=== PATIENT | female | born 1970 | race Caucasian/White ===

== ENCOUNTER 2019-09-10 08:15 | Outpatient (CLI) | payer BC, SELFPAY ==
--- NOTE | 2019-09-10 08:45 | USCV_ITS ---
Valerie Medina Age: 49 Gender: F : 1970 Exam Date: 09/10/2019 08:34 Ordering Phys: Deedee Yoon APRN Technologist: Seema Osman Exam Location: [facility] [place] Indication: MV DISEASE BP: 115 / 67 HR: 77 Rhythm: Sinus Technical Quality: MEASUREMENTS (Male / Female) Normal Values 2D ECHO LV Diastolic Diameter PLAX 4.6 cm 4.2 - 5.9 / 3.9 - 5.3 cm LV Systolic Diameter PLAX 3.6 cm LV Chamber Size 3.9 cm IVS Diastolic Thickness 0.9 cm 0.6 - 1.0 / 0.6 - 0.9 cm IVS Systolic Thickness 1.1 cm LVPW Diastolic Thickness 1.8 cm 0.6 - 1.0 / 0.6 - 0.9 cm LVPW Systolic Thickness 2.4 cm RV Chamber Size 2.2 cm LVOT Diameter 2.0 cm LV Ejection Fraction 2D Teich 43.3 % LV Ejection Fraction MOD 2C 49.4 % LV Ejection Fraction 2C AL 50.3 % LA Diameter 3.2 cm LA Width 3.6 cm LA Height 3.5 cm RA Width 3.4 cm RA Height 3.1 cm Aorta at Sinotubular Diameter 3.0 cm M-MODE LV Diastolic Diameter MM 5.3 cm 4.2 - 5.9 / 3.9 - 5.3 cm LV Systolic Diameter MM 3.6 cm LV Ejection Fraction MM Teich 59.2 % IVS Diastolic Thickness MM 0.8 cm 0.6 - 1.0 / 0.6 - 0.9 cm IVS Systolic Thickness MM 1.0 cm LVPW Diastolic Thickness MM 0.9 cm 0.6 - 1.0 / 0.6 - 0.9 cm LVPW Systolic Thickness MM 1.2 cm Aortic Annulus Diameter 3.4 cm LA Ao Ratio MM 0.9 MV E Point Septal Separation 1.0 cm DOPPLER AV Peak Velocity 147.0 cm/s LVOT Peak Velocity 107.0 cm/s AV Area Cont Eq vti 2.3 cm squared AV Area Cont Eq pk 2.3 cm squared MV Area PHT 6.7 cm squared Mitral E to A Ratio 1.0 MV E' Velocity 12.0 cm/s Mitral E to MV E' Ratio 7.2 Mitral E to LV E' Lateral Ratio 6.5 Mitral E to LV E' Septal Ratio 8.1 TR Peak Velocity 262.0 cm/s TR Peak Gradient 27.5 mmHg TV Peak E Velocity 53.0 cm/s Right Atrial Pressure 3.0 mmHg Pulmonary Artery Systolic Pressu 30.5 mmHg PV Peak Velocity 77.0 cm/s RV Acceleration Time 0.2 s RV Ejection Time 0.4 s RV AcT/ET 0.5 FINDINGS Left Ventricle Normal left ventricular cavity size. Normal left ventricular wall thickness. Normal left ventricular systolic function. Left ventricular ejection fraction is estimated at 60 %. No regional wall motion abnormalities. Normal diastolic function. Right Ventricle Normal right ventricular size and systolic function. Right ventricular systolic pressure 30.5 mmHg. Right Atrium Normal right atrial size. Right atrial pressure estimated at 3 mmHg. Left Atrium Normal left atrial size. Mitral Valve Mildly thickened mitral valve. Mild bileaflet prolapse. No mitral valve stenosis. Trace posteriorly directed mitral valve regurgitation. Aortic Valve Structurally normal trileaflet aortic valve. No aortic valve stenosis. No aortic valve regurgitation. Tricuspid Valve Structurally normal tricuspid valve. No tricuspid valve stenosis. Trace tricuspid valve regurgitation. Pulmonic Valve Structurally normal pulmonic valve. No pulmonary valve stenosis. Trace pulmonary valve regurgitation. Pericardium No pericardial effusion. Aorta Normal size aortic root and proximal ascending aorta. CONCLUSIONS 1. Normal left ventricular cavity size, wall thickness and systolic function. Left ventricular ejection fraction is estimated at 60 %. No regional wall motion abnormalities. Normal diastolic function. 2. Normal right ventricular size and systolic function. 3. Mildly thickened mitral valve. Mild bileaflet prolapse. Trace posteriorly directed mitral valve regurgitation. 4. Pulmonary artery pressure estimated at 31 mmHg. 5. No prior similar studies to compare. Patricia Burdick MD (Electronically Signed) Final Date: 10 September 2019 13:19 S
== END 2019-09-10 08:16 | disposition home or self-care (01) ==
PROVIDERS: Family Provider Internal Medicine; PCP Internal Medicine; Visit Provider Nurse Practitioner Family
DX: I05.9 Rheumatic mitral valve disease, unspecified (principal)
CPT/HCPCS: 93306

== ENCOUNTER 2019-09-11 09:20 | Outpatient (CLI) | payer BC, SELFPAY ==
[2019-09-11 09:42] LABS: Basophils # 0.1 10^3/uL (0.0-0.1); Basophils % 0.8 %; Eosinophils # 0.1 10^3/uL (0.0-0.8); Eosinophils % 1.8 %; Hematocrit 40.8 % (37.0-47.0); Hemoglobin 13.3 g/dL (11.5-15.3); Lymphocytes # 1.8 10^3/uL (0.8-4.8); Lymphocytes % 28.9 %; Mean Corpuscular HGB Conc 32.6 g/dL (30.0-36.0); Mean Corpuscular Hemoglobin 31.6 pg (28.0-34.0); Mean Corpuscular Volume 96.9 fL (81-99); Mean Platelet Volume 9.2 fL (7.4-10.4); Monocytes # 0.7 10^3/uL (0.2-0.9); Monocytes % 11.2 %; Neutrophils # 3.6 10^3/uL (1.8-7.7); Neutrophils % 57.1 %; Nucleated Red Blood Cells % 0 %; Platelet Count 317 10^3/cmm (130-400); Red Blood Count 4.21 10^6/uL (4.1-5.3); Red Cell Distribution Width 12.6 % (12.1-15.1); White Blood Count 6.3 10^3/uL (4.0-10.0)
[2019-09-11 10:02] LABS: Alanine Aminotransferase 14 U/L (0-33); Albumin Level 4.7 g/dL (3.5-5.2); Alkaline Phosphatase 67 IU/L (35-105); Anion Gap 15.9 (5-19); Aspartate Amino Transferase 19 U/L (0-32); Blood Urea Nitrogen 9 mg/dL (6-20); Calcium 10.1 mg/dL (8.5-10.5); Carbon Dioxide 28 mmol/L (22-29); Chloride 103 mmol/L (98-107); Glomerular Filtration Rate 89.3 mL/min (90-130); Glucose 73 mg/dL (65-115); Osmolality Calculated 291 mOsm/kg (285-295); Potassium 3.9 mmol/L (3.5-5.1); Sodium 143 mmol/L (136-145); Thyroid Stimulating Hormone 1.43 uIU/mL (0.27-4.20); Total Bilirubin 0.4 mg/dL (0.15-1.2); Total Protein 7.7 g/dL (6.6-8.7)
== END 2019-09-11 09:21 | disposition home or self-care (01) ==
LOC: LAB 09:23
PROVIDERS: Nurse Practitioner Family; Family Provider Internal Medicine; PCP Internal Medicine; Visit Provider Internal Medicine
DX: R53.83 Other fatigue (principal)
CPT/HCPCS: 36415; 80053; 84443; 85025

== ENCOUNTER → 2020-12-06 16:00 | Outpatient (BNVA) | payer BC, SELFPAY | PROVIDERS: Family Provider Internal Medicine; PCP Internal Medicine; Visit Provider Internal Medicine | DX: R53.83 Other fatigue (principal); Z85.43 Personal history of malignant neoplasm of ovary | CPT/HCPCS: 80053; 82607; 82746; 83550; 84443; 85651 ==

== ENCOUNTER 2020-12-17 09:24 | Outpatient (CLI) | payer BC, SELFPAY ==
--- NOTE | 2020-12-17 09:40 | XR_ITS ---
WS: [id number] Right wrist, 2 views Clinical Data: W19.XXXA - Unspecified fall, initial encounter Comparison: Right hand, 10/20/2010. Findings: On the lateral film there is a small fragment which could represent a triquetral fracture. The PA view is normal. The soft tissues are unremarkable. The distal right radius and ulna are normal . XR/XR wrist RT 2V [id number] Impression: Possible triquetral fracture of the right wrist and recommend repeat right wris t x-ray in 8-10 days.
== END 2020-12-17 09:25 | disposition home or self-care (01) ==
PROVIDERS: PCP Internal Medicine; Visit Provider Internal Medicine
DX: S69.91XA Unspecified injury of right wrist, hand and finger(s), initial encounter (principal); W19.XXXA Unspecified fall, initial encounter; R79.89 Other specified abnormal findings of blood chemistry
CPT/HCPCS: 73100

== ENCOUNTER → 2021-05-09 15:20 | Outpatient (BNVA) | payer BC, SELFPAY | PROVIDERS: PCP Internal Medicine; Visit Provider Internal Medicine | DX: R63.4 Abnormal weight loss (principal); R10.9 Unspecified abdominal pain; E78.5 Hyperlipidemia, unspecified; Z80.0 Family history of malignant neoplasm of digestive organs; Z85.43 Personal history of malignant neoplasm of ovary | CPT/HCPCS: 80053; 83550; 84443 ==

== ENCOUNTER → 2021-05-30 12:53 | Outpatient (BNVA) | payer BC, SELFPAY | PROVIDERS: PCP Internal Medicine; Visit Provider Internal Medicine | DX: Z01.812 Encounter for preprocedural laboratory examination (principal); Z20.822 Contact with and (suspected) exposure to COVID-19 | CPT/HCPCS: 87635 ==

== ENCOUNTER 2021-06-06 05:32 | Day surgery (SDC) | payer BC, SELFPAY ==
[2021-06-01 12:48] VITALS: BMI 27.4
[2021-06-06 06:20] VITALS: BP 121/77; PULSE 90; RESP 18; TEMP 36.8; O2SAT 97
[2021-06-06] MEDS: sodium chloride 0.9% 1,000 ML 30 ML IV (06:34)
--- NOTE | 2021-06-06 06:46 | ANES.PREANE2 ---
Pre-Anesthetic Assessment Pre-Anesthetic Assessment: Height/Weight: Height 1.68 m Weight 77.111 kg Temp Pulse Resp BP Pulse Ox 98.3 F 90 18 121/77 97 06/06/21 06:20 06/06/21 06:20 06/06/21 06:20 06/06/21 06:20 06/06/21 06:20 Preop Diagnosis: FH Proposed Procedure: Operation Date: 06/06/21 07:00 Proposed Procedures p EGD/Colon 88279 R10.9(Not Applicable) - Chapo Hankins MD s Colonoscopy D8798 67550 Z80.0(Not Applicable) - Chapo Hankins MD Familial anesthetic complications: none Was Beta Patricia taken within 24 hours: N/A Was Clonidine taken within 24 hours: N/A Last intake: Intake Last Liquid Date 06/05/21 Last Liquid Time 20:00 Last Solid Date 06/04/21 Last Solid Time 19:00 Social: Social History: Alcohol and No tobacco Exam: Pre-Anes Outpt Exam: alert, oriented x 3 and clear to auscultation bilaterally Additional Exam Findings (including area of procedure): mitral valve murmur Airway: Submandibular: WNL Cervical ROM: WNL MP: 1 Dentition: Full History/ROS: No significant history except as noted Pulmonary: Pulmonary: None reported CV/HEM: CV/HEM: Murmur and Palp : : None reported Hepatic: Hepatic: None reported GI: GI: None reported Metabolic: Metabolic: None reported Musc/skel: Musc/skel: None reported Neuropsych: Neuropsych: None reported Anesthetic Plan: ASA status: 2 Anesthesia: MAC Risk of > 500 ml blood loss (7ml/kg in children): No Meds/Allergies Current Medications: Current Medications Generic Name Dose Route Start Last Admin Trade Name Freq PRN Reason Stop Dose Admin Sodium Chloride 1,000 mls @ 30 ml s/hr 06/06/21 06:15 06/06/21 06:34 Sodium Chloride 0.9% IV 06/07/21 06:14 30 mls/hr .Q24H JETT Administration PFSH Anesthesia PFSH: Family History Mother Heart disease Grandmother Heart disease Grandfather Heart disease Father Cancer Social History Smoking and tobacco status: never smoked Alcohol intake: current Alcohol intake frequency: 0-2 Drinks per Day Data Anesthesia Cardiac Studies: Echocardiogram Ultrasound 09/10/19
--- NOTE | 2021-06-06 07:02 | W.PM.OPSFHP ---
Same Day Surgery H&P Indication for Procedure/HPI DATE OF PROCEDURE: June 06, 2021 CHIEF COMPLAINT/INDICATIONFOR SURGICAL PROCEDURE: Abdominal pain PREOP DIAGNOSIS: FH PLANNED PROCEDRUE: Operation Date: 06/06/21 07:00 Proposed Procedures p EGD/Colon 80198 R10.9(Not Applicable) - Chapo Hankins MD s Colonoscopy X2149 88626 Z80.0(Not Applicable) - Chapo Hankins MD Medications/Allergies* Allergies/Adverse Reactions Allergy/AdvReac Type Severity Reaction Status Date / Time No Known Allergies Allergy Verified 05/09/21 14:44 Current Medications: Generic Name Dose Route Start Last Admin Trade Name Freq PRN Reason Stop Dose Admin Sodium Chloride 1,000 mls @ 30 mls/hr 06/06/21 06:15 06/06/21 06:34 Sodium Chloride 0.9% IV 06/07/21 06:14 30 mls/hr .Q24H JETT Administration Pertinent History/Comorbid Conditions* Family History (Updated 09/03/19 @ 14:33 by Harper Arce LPN) Heart disease Mother Grandmother Grandfather Cancer Father Social History Smoking and tobacco status: never smoked Alcohol intake: current Alcohol intake frequency: 0-2 Drinks per Day Pertinent Exam Findings alert, oriented x 3, clear to auscultation bilaterally, regular rate & rhythm, operative site marked and procedure specific exam findings Recommendations Surgery/Procedure today Coding Level of Care Code Acute Projects Manager for Nico Tolbert
[2021-06-06 07:31] VITALS: BP 95/73; PULSE 85; RESP 16; TEMP 36.1; O2SAT 96
--- NOTE | 2021-06-06 14:06 | ANE.PACU2 ---
Inpatient post-anesthesia follow up: Airway intact: Yes Vital signs: Temperature 97.0 F Pulse Rate 85 Respiratory Rate 16 Blood Pressure 95/73 Pulse Oximetry 96 Oxygen Delivery Me thod Nasal Cannula Oxygen Flow Rate 4 Fraction of Inspir ed Oxygen Hydration adequate: Yes Nausea and vomiting: No Pain level: 2 Mental status: Baseline
[2021-06-07 06:11] LABS: H. Pylori / CLO Test Negative
== END 2021-06-06 08:16 | disposition home or self-care (01) ==
PROVIDERS: PCP Internal Medicine; Visit Provider Internal Medicine
PROC: 0DJ08ZZ Inspection of Upper Intestinal Tract, Via Natural or Artificial Opening Endoscopic (ICD-10-PCS; CPT 43235; principal; 2021-06-06 07:00)
PROC: 0DJD8ZZ Inspection of Lower Intestinal Tract, Via Natural or Artificial Opening Endoscopic (ICD-10-PCS; CPT 45378; 2021-06-06 07:00)
DX: R10.9 Unspecified abdominal pain (principal); Z80.0 Family history of malignant neoplasm of digestive organs; K29.70 Gastritis, unspecified, without bleeding; Z82.49 Family history of ischemic heart disease and other diseases of the circulatory system
CPT/HCPCS: 43239; 45378; 87077; J2704; J7030

== ENCOUNTER 2021-10-10 14:31 | Outpatient (CLI) | payer OTHER, SELFPAY ==
--- NOTE | 2021-10-10 14:49 | XRR_ITS ---
PROCEDURE INFORMATION: Exam: XR Chest Exam date and time: 10/10/2021 2:57 PM Age: 51 years old Clinical indication: Angina pectoris; Prior surgery; Surgery type: Hysterectomy; Patient HX: Chest pain yesterday, HX of ovarian cancer; Additional info: Cp TECHNIQUE: Imaging protocol: XR of the chest. Views: 2 views. COMPARISON: CT Chest/Abdomen/Pelvis [facility] 03/30/2015 9:47 AM FINDINGS: Lungs: No consolidation. Pleural spaces: Unremarkable. No pleural effusion. No pneumothorax. Heart/Mediastinum: No cardiomegaly. Bones/joints: No acute findings. XR/XR chest 2V* [id number] IMPRESSION: No acute findings.
== END 2021-10-10 14:32 | disposition home or self-care (01) ==
PROVIDERS: PCP Internal Medicine; Visit Provider Internal Medicine
DX: R07.89 Other chest pain (principal)
CPT/HCPCS: 71046

== ENCOUNTER → 2023-01-20 10:50 | Outpatient (BNVA) | payer OTHER, SELFPAY | PROVIDERS: PCP Family Medicine; Visit Provider Nurse Practitioner Family | DX: R05.9 Cough, unspecified (principal) | CPT/HCPCS: 87426 ==

== ENCOUNTER 2024-08-07 23:20 | Emergency (ER) | payer OTHER, SELFPAY ==
[2024-08-07 23:24] VITALS: BP 148/77; PULSE 72; RESP 16; TEMP 36.4; O2SAT 97; BMI 29.0
[2024-08-08 00:32] LABS: Bilirubin Urine Negative (Negative); Blood Urine Negative (Negative); Glucose Urine UA Negative (Normal); Ketones Urine Negative (Negative); Leukocyte Esterase Urine 3+ (Negative); Nitrate Urine Negative (Negative); Protein Urine Negative (Negative); Specific Gravity, Urine 1.015 (1.005-1.030); Urine Appearance Cloudy (CLEAR); Urine Color Yellow (Yellow)
[2024-08-08 00:34] LABS: Add Urine Microscopic? YES; Bacteria Urine None Seen /hpf; Hyaline Casts Urine 0.81 /lpf; RBC Urine 0-2 /hpf (0-2); Squamous Epithelial Cell Urine 0-5 /hpf (0-5); WBC Urine 51-100 /hpf (0-5)
[2024-08-08 00:35] LABS: Basophils # 0.1 10^3/uL (0.0-0.1); Basophils % 0.6 %; Eosinophils # 0.2 10^3/uL (0.0-0.8); Eosinophils % 2.5 %; Hematocrit 38.2 % (36-47); Lymphocytes # 1.4 10^3/uL (0.8-4.8); Lymphocytes % 17.2 %; Mean Corpuscular Hemoglobin 31.9 pg (27-33); Mean Corpuscular Volume 93.6 fl (85-98); Mean Platelet Volume 8.5 fL (7.4-10.4); Monocytes # 0.7 10^3/uL (0.2-0.9); Monocytes % 8.6 %; Neutrophils # 5.92 10^3/uL (1.8-7.7); Neutrophils % 70.7 %; Nucleated Red Blood Cells % 0 %; Platelet Count 289 10^3/cmm (157-399); Red Blood Count 4.08 10^6/uL (3.85-5.65); Red Cell Distribution Width 12.5 % (12.1-15.1); White Blood Count 8.37 10^3/uL (3.29-11.43)
--- NOTE | 2024-08-08 00:43 | XRR_ITS ---
PROCEDURE INFORMATION: Exam: XR Chest Exam date and time: 08/08/2024 1:01 AM Age: 54 years old Clinical indication: Other: Epigastric pain TECHNIQUE: Imaging protocol: Radiologic exam of the chest. Views: 1 view. COMPARISON: CR XR chest 2V* [id number] 10/10/2021 2:57 PM FINDINGS: Lungs: Unremarkable. No consolidation. Pleural spaces: Unremarkable. No pleural effusion. No pneumothorax. Heart/Mediastinum: Unremarkable. No cardiomegaly. Bones/joints: Unremarkable. XR/XR chest 1V portable [id number] IMPRESSION: No acute findings.
--- NOTE | 2024-08-08 00:44 | ECG_ITS ---
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 Measurements Intervals [place] Rate: 61 P: -24 CO: 158 QRS: 12 QRSD: 98 T: -36 QT: 425 QTc: 429 Interpretive Statements SINUS RHYTHM NONSPECIFIC T-WAVE ABNORMALITY No previous ECG available for comparison Electronically Signed On 08-08-2024 19:04:48 CDT by Rahul Gómez M.D. [email or web address]
[2024-08-08 00:54] LABS: Anion Gap 15.3 (5-19); Blood Urea Nitrogen 13 mg/dL (6-20); Calcium 9.4 mg/dL (8.5-10.5); Carbon Dioxide 26 mmol/L (22-29); Chloride 104 mmol/L (98-107); Creatinine Clr Calc Pharmacy 100.1242; Glomerular Filtration Rate 87.5 mL/min (90-130); Glucose 106 mg/dL (65-115); Lipase 24 U/L (13-60); Osmolality Calculated 295 mOsm/kg (285-295); Potassium 3.3 mmol/L (3.5-5.1); Sodium 142 mmol/L (136-145)
[2024-08-08 00:59] LABS: Alanine Aminotransferase 26 U/L (0-33); Albumin Level 4.2 g/dL (3.5-5.2); Alkaline Phosphatase 88 U/L (35-105); Aspartate Amino Transferase 26 U/L (0-32); Globulin 2.7 g/dL (1.3-4.6); Total Bilirubin 0.5 mg/dL (0.15-1.2); Total Protein 6.9 g/dL (6.6-8.7)
[2024-08-08 01:09] LABS: Add Urine Culture? Yes
[2024-08-08 01:13] LABS: Troponin(5th) Baseline < 6 ng/L (0-10)
--- NOTE | 2024-08-08 01:24 | W.ED.ABDPA2 ---
HPI - Abdominal Pain General: Chief Complaint: Abdominal Pain Stated Complaint: severe abd pain pain in left jaw Time Seen by Provider: 08/08/24 00:33 History of Present Illness: This patient is a 54-year-old white female who presents to the emergency department complaining of upper abdominal pain. She states this was severe. This morning. She is described as a stabbing sensation. She is felt somewhat bloated today. She felt like her heart was fluttering somewhat this evening. 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 Alegre at [facility] in [place] Surgical History History of cholecystectomy History of appendectomy History of tonsillectomy History of hysterectomy Family History Mother Heart disease Grandmother Heart disease Grandfather Heart disease Father Cancer colon Social History Smoking and tobacco/nicotine status: never used tobacco/nicotine Alcohol intake: current Alcohol intake frequency: 0-2 Drinks per Day Substance/Drug Use: never Household members: none Marital status: Number of children: 2 Number of grandchildren: 2 Current occupational status: employed Agree to transfusion: Yes Physical Exam Const: COMMON NORMALS: no acute distress, patient oriented x3 and no limitations GENERAL APPEARANCE: cooperative and comfortable HENMT: COMMON NORMALS: normocephalic, atraumatic, Normal nasal mucous membranes and turbinates present, moist oral mucous membranes and oropharynx normal HEAD & SCALP: normal to inspection, normocephalic and atraumatic FACE & SINUS: normal facial exam NOSE: Normal nasal mucous membranes and turbinates present Eye: COMMON NORMALS: Equal, round and reactive pupils present, EOMs intact bilaterally and conjunctivae normal GENERAL EYE: appearance normal, both eyes and all related structures CONJUNCTIVA: Yes conjunctivae normal PUPIL: Yes Equal, round and reactive pupils present Neck/C-Spine: COMMON NORMALS: supple and no JVD Chest: COMMONS NORMALS: normal inspection of the chest Resp: COMMON NORMALS: normal respiratory effort and clear to auscultation bilaterally AUSCULTATION: clear to auscultation bilaterally Cardio: COMMON NORMALS: no JVD, regular rate, regular rhythm, No gallops present (Cardio), No murmurs present (Cardio) and No rub (Cardio) RATE: regular rate RHYTHM: regular rhythm GI: COMMON NORMALS: Normal to inspection, nondistended, normoactive bowel sounds present, Soft to palpation and non-tender AUSCULTATION: Yes normoactive bowel sounds PALPATION: Yes Soft to palpation : COMMON NORMALS: Yes no CVA tenderness BLADDER/KIDNEY EXAM: Yes no CVA tenderness Back/Pelvis: COMMON NORMALS: no CVA tenderness and thoracic and lumbar spine normal to inspection Extremity: COMMON NORMALS: normal to inspection Neuro: COMMON NORMALS: patient oriented x3 and CN's II-XII intact bilaterally Psych: COMMON NORMALS: mental status grossly normal, Normal thought process present and cooperative THOUGHT PROCESS: Normal thought process present Skin: COMMON NORMALS: no rashes or lesions noted, turgor normal and no jaundice GENERAL SKIN EXAM: no rashes or lesions noted and turgor normal Course Vital Signs: Vital signs: Vital Signs Temperature 97.5 F L 08/07/24 23:24 Pulse Rate 72 08/07/24 23:24 Respiratory Rate 16 08/07/24 23:24 Blood Pressure 148/77 08/07/24 23:24 Pulse Oximetry 97 08/07/24 23:24 Oxygen Delivery Me thod Room Air 08/07/24 23:24 MDM - Abdominal Pain Medical Decision Making EKG is basically normal except for inverted T waves in aVF. Chest x-ray was normal. CBC, CMP and lipase normal. Troponin less than 6. Urine analysis revealed some white cells but no bacteria. I think the patient's symptoms are secondary to acid reflux. She states that her primary care provider had prescribed pantoprazole but she only takes it as needed. I told her she needs to take that medication on a daily basis. I recommended she start taking that and follow-up with her primary care physician next week for recheck. She was discharged in stable condition. Lab Data 08/08/24 00:30 08/08/24 00:30 Labs/Radiology: Laboratory Results WBC 8.37 10^3/uL (3.29-11.43) 08/08/24 00:30 RBC 4.08 10^6/uL (3.85-5.65) 08/08/24 00:30 Hgb 13.00 g/dL (11.27-16.99) 08/08/24 00:30 Hct 38.2 % (36-47) 08/08/24 00:30 MCV 93.6 fl (85-98) 08/08/24 00:30 MCH 31.9 pg (27-33) 08/08/24 00:30 MCHC 34.0 g/dL (30-55) 08/08/24 00:30 RDW 12.5 % (12.1-15.1) 08/08/24 00:30 Plt Count 289 10^3/cmm (157-399) 08/08/24 00:30 MPV 8.5 fL (7.4-10.4) 08/08/24 00:30 Neut % (Auto) 70.7 % 08/08/24 00:30 Lymph % (Auto) 17.2 % 08/08/24 00:30 [place] % (Auto) 8.6 % 08/08/24 00:30 Eos % (Auto) 2.5 % 08/08/24 00:30 Baso % (Auto) 0.6 % 08/08/24 00:30 Neut # (Auto) 5.92 10^3/uL (1.8-7.7) 08/08/24 00:30 Lymph # (Auto) 1.4 10^3/uL (0.8-4.8) 08/08/24 00:30 [place] # (Auto) 0.7 10^3/uL (0.2-0.9) 08/08/24 00:30 Eos # (Auto) 0.2 10^3/uL (0.0-0.8) 08/08/24 00:30 Baso # (Auto) 0.1 10^3/uL (0.0-0.1) 08/08/24 00:30 Nucleated RBC % (auto) 0 % 08/08/24 00 Nucleated RBCs # 0.0 /100WBC 08/08/24 00:30 Sodium 142 mmol/L (136-145) 08/08/24 00:30 Potassium 3.3 mmol/L (3.5-5.1) L 08/08/24:30 Chloride 104 mmol/L (98-107) 08/08/24 00:30 Carbon Dioxide 26 mmol/L (22-29) 08/08/24 00:30 Anion Gap 15.3 (5-19) 08/08/24 00:30 BUN 13 mg/dL (6-20) 08/08/24:30 Creatinine 0.7 mg/dL (0.5-0.9) 08/08/24 00 GFR Calculation 87.5 mL/min (90-130) L 08/08/24 00:30 Glucose 106 mg/dL (65-115) 08/08/24 00:30 Calculated Osmolality 295 mOsm/kg (285-295) 08/08/24:30 Calcium 9.4 mg/dL (8.5-10.5) 08/08/24 00:30 Total Bilirubin 0.5 mg/dL (0.15-1.2) 08/08/24 00:30 AST 26 U/L (0-32) 08/08/24 00:30 ALT 26 U/L (0-33) 08/08/24 00:30 Alkaline Phosphatase 88 U/L (35-105) 08/08/24 00:30 Troponin T Baseline < 6 ng/L (0-10) 08/08/24 0030 Total Protein 6.9 g/dL (6.6-8.7) 08/08/24 00:30 Albumin 4.2 g/dL (3.5-5.2) 08/08/24 00:30 Globulin 2.7 g/dL (1.3-4.6) 08/08/24 00:30 Lipase 24 U/L (13-60) 08/08/24 00:30 Urine Color Yellow (Yellow) 08/08/24 00:26 Urine Appearance Cloudy (CLEAR) A 08/08/24 00:26 Urine pH 7.0 (5-7) 08/08/24 00:26 Ur Specific [place] 1.015 (1.005-1.030) 08/08/24 00:26 Urine Protein Negative (Negative) 08/08/24 00: Urine Glucose (UA) Negative (Normal) 08/08/24 00: Urine Ketones Negative (Negative) 08/08/24 00: Urine Blood Negative (Negative) 08/08/24 00: Urine Nitrate Negative (Negative) 08/08/24: Urine Bilirubin Negative (Negative) 08/08/24: Urine Urobilinogen 1.0 mg/dL (Negative) 08/08/24 00:26 Ur Leukocyte Esterase 3+ (Negative) A 08/08/24 00: Urine RBC 0-2 /hpf (0-2) 08/08/24 00: Urine WBC 51-100 /hpf (0-5) H 08/08/24 00:26 Ur Squamous Epith Cells 0-5 /hpf (0-5) 08/08/24 00: Amorphous Sediment Not Reportable 08/08/24 00: Urine Bacteria None seen /hpf (NONE) 08/08/24 00: Hyaline Casts 0.81 /lpf 08/08/24 00:26 All radiology interpretation(s) finalized by discharge Discharge Plan Discharge Patient Disposition: Home Clinical Impression: Chest pain due to GERD Condition: Stable Prescriptions: No Action duloxetine [Cymbalta] 30 mg capsule,delayed release(DR/EC) 30 mg PO DAILY Qty: 30 0RF Discharge Orders: Discharge ED (Routine); Ordered 08/08/24 Ordered By: Miguel Aranda Referrals: Tameka Hayden MD [Primary Care Provider] - Patient Instructions: GERD (Gastroesophageal Reflux Disease) (DC) Activity Restrictions/Additional Instructions: Take the pantoprazole as prescribed by your primary care provider on a daily basis. Follow-up with your primary care physician next week for recheck. Print Language: Frisian Coding Level of Care Code ED Hog Cooler for Nico Tolbert
== END 2024-08-08 01:29 | disposition home or self-care (01) ==
PROVIDERS: Emergency Provider Emergency Medicine; PCP Family Medicine
DX: K21.9 Gastro-esophageal reflux disease without esophagitis (principal)
CPT/HCPCS: 36415; 71045; 80048; 80076; 81001; 83690; 84484; 85025; 87086; 93005; 99285

== ENCOUNTER → 2024-08-28 17:51 | Outpatient (BNVA) | payer OTHER, SELFPAY | PROVIDERS: PCP Family Medicine; Visit Provider Emergency Medicine | DX: M25.422 Effusion, left elbow (principal); M77.12 Lateral epicondylitis, left elbow | CPT/HCPCS: 73080 ==

== ENCOUNTER → 2024-08-29 11:47 | Outpatient (BNVA) | payer OTHER, SELFPAY | PROVIDERS: PCP Family Medicine; Visit Provider Emergency Medicine | DX: S80.252A Superficial foreign body, left knee, initial encounter (principal); X58.XXXA Exposure to other specified factors, initial encounter | CPT/HCPCS: 73562 ==

== ENCOUNTER → 2024-09-01 14:37 | Outpatient (BNVA) | payer OTHER, SELFPAY | PROVIDERS: PCP Family Medicine; Visit Provider Orthopaedic Surgery | DX: S52.122A Displaced fracture of head of left radius, initial encounter for closed fracture (principal); W19.XXXA Unspecified fall, initial encounter | CPT/HCPCS: 73080 ==

== ENCOUNTER → 2024-09-09 09:30 | Outpatient (BNVA) | payer OTHER, SELFPAY | PROVIDERS: PCP Family Medicine; Visit Provider Orthopaedic Surgery | DX: M25.522 Pain in left elbow (principal); M25.562 Pain in left knee; Z46.89 Encounter for fitting and adjustment of other specified devices | CPT/HCPCS: 73080 ==

== ENCOUNTER 2024-09-09 12:15 | Outpatient (CLI) | payer OTHER, SELFPAY | END 2024-09-09 12:16 | disposition home or self-care (01) | LOC: SPT 12:15 | PROVIDERS: PCP Family Medicine; Visit Provider Orthopaedic Surgery | DX: Z46.89 Encounter for fitting and adjustment of other specified devices (principal); M25.532 Pain in left wrist | CPT/HCPCS: L3908 ==

== ENCOUNTER 2024-11-25 17:16 | Outpatient (CLI) | payer OTHER, SELFPAY | END 2024-11-25 17:17 | disposition home or self-care (01) | PROVIDERS: PCP Family Medicine; Visit Provider Emergency Medicine | DX: R19.8 Other specified symptoms and signs involving the digestive system and abdomen (principal) | CPT/HCPCS: 82274; 83630; 83993; 87177; 87205; 87209 ==

== ENCOUNTER 2025-01-27 11:32 | Day surgery (SDC) | payer OTHER, SELFPAY ==
[2025-01-27 12:00] VITALS: BP 117/88; PULSE 76; RESP 18; TEMP 36.1; O2SAT 98; BMI 29.0
--- NOTE | 2025-01-27 12:12 | P.ANESASSM_ITS ---
Pre-Anesthetic Assessment Height/Weight: Height 1.68 m Weight 81.647 kg Temp Pulse Resp BP Pulse Ox O2 Del Method 97 F L 76 18 117/88 98 Room Air 01/27/25 12:00 01/27/25 12:00 01/27/25 12:00 01/27/25 12:00 01/27/25 12:00 01/27/25 12:00 Operation Date: 01/27/25 13:15 Proposed Procedures p EGD with Biopsy 13827 34193 G0105, R19.8 Z80.0 K92.1(Not Applicable) - Vincent Marie MD s Colonoscopy(Not Applicable) - Vincent Marie MD Was Beta Patricia taken within 24 hours: N/A Was Clonidine taken within 24 hours: N/A Last intake: Intake Last Liquid Date 01/27/25 Last Liquid Time 20:00 Last Solid Date 01/25/25 Last Solid Time 16:30 Social No alcohol and No tobacco Exam alert, oriented x 3, clear to auscultation bilaterally and regular rate & rhythm Airway Submandibular: within normal limits Cervical ROM: within normal limits Mallampati: Class II Dentition: full History/ROS No significant history except as noted and No significant complaints Pulmonary None reported CV/HEM Murmur None reported Hepatic None reported GI Gastroesophageal Reflux Disease Metabolic None reported Musc/skel None reported Neuropsych None reported Anesthetic Plan ASA status: 2 Anesthesia: Anesthesia Evaluation and MAC Risk of > 500 ml blood loss (7ml/kg in children): No Medications/Allergies Home Medications ?Medication ?Instructions ?Recorded ?Confirmed ?Last Taken ?Type Cock up #1 ea 09/09/24 12/11/24 Unkn own Rx omeprazole 20 mg capsule,delayed 20 mg PO DAILY 01/23/25 Unknown History release Allergies Allergy/AdvReac Type Severity Reaction Status Date / Time levofloxacin (From Levaquin) AdvReac Unknown Unknown Verified 01/23/25 11:33 [facility] Anesthesia Medical History Family history of colon cancer in father Change in bowel movement Angio-edema 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 Alegre at [facility] in [place] Surgical History History of cholecystectomy History of appendectomy History of tonsillectomy History of hysterectomy Family History Mother Heart disease Grandmother Heart disease Grandfather Heart disease Father Cancer colon Social History Smoking and tobacco/nicotine status: never used tobacco/nicotine Alcohol intake: current Alcohol intake frequency: 0-2 Drinks per Day Substance/Drug Use: never Household members: none Marital status: Number of children: 2 Number of grandchildren: 2 Current occupational status: employed Agree to transfusion: Yes Data Anesthesia Cardiac Studies: Echocardiogram Ultrasound 09/10/19
--- NOTE | 2025-01-27 12:18 | W.PM.OPSFHP ---
Same Day Surgery H&P Indication for Procedure/HPI DATE OF PROCEDURE: January 27, 2025 CHIEF COMPLAINT/INDICATIONFOR SURGICAL PROCEDURE: melena, hematochezia PREOP DIAGNOSIS: melena, hematochezia PLANNED PROCEDURE: Operation Date: 01/27/25 13:15 Proposed Procedures p EGD with Biopsy [id number] G0105, R19.8 Z80.0 K92.1(Not Applicable) - Vincent Marie MD s Colonoscopy(Not Applicable) - Vincent Marie MD Medications/Allergies* Home Medications ?Medication ?Instructions ?Recorded ?Confirmed ?Type omeprazole 20 mg capsule,delayed 20 mg PO DAILY 12/11/24 01/23/25 History release Allergies/Adverse Reactions Allergy/AdvReac Type Severity Reaction Status Date / Time levofloxacin (From Levaquin) AdvReac Unknown Unknown Verified 01/23/25 11:33 Current Medications: Generic Name Dose Route Start Last Admin Trade Name Freq PRN Reason Stop Dose Admin Sodium Chloride 1,000 mls @ 15 mls/hr 01/27/25 11:47 01/27/25 12:08 Sodium Chloride 0.9% IV 01/28/25 11:46 15 mls/hr .Q24H PRN Administration COLONOSCOPY FLUIDS Pertinent History/Comorbid Conditions* Medical History (Updated 12/04/24 @ 09:54 by Tameka Hayden MD) Family history of colon cancer in father Change in bowel movement Angio-edema 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 Alegre at [facility] in [place] Surgical History (Updated 06/28/22 @ 12:06 by Tameka Hayden MD) History of cholecystectomy History of appendectomy History of tonsillectomy History of hysterectomy Family History (Updated 06/28/22 @ 12:06 by Tameka Hayden MD) Heart disease Mother Grandmother Grandfather Cancer Father colon Social History Smoking and tobacco/nicotine status: never used tobacco/nicotine Alcohol intake: current Alcohol intake frequency: 0-2 Drinks per Day Substance/Drug Use: never Household members: none Marital status: Number of children: 2 Number of grandchildren: 2 Current occupational status: employed Agree to transfusion: Yes Pertinent Exam Findings alert, oriented x 3, clear to auscultation bilaterally, regular rate & rhythm and procedure specific exam findings abdomen soft, nt, nd Recommendations Risks and benefits of procedure reviewed and Patient/family agree to proceed Surgery/Procedure today Coding Level of Care Code Acute Code for Chg Fwd
[2025-01-27 12:50] VITALS: BP 104/66; PULSE 67; RESP 19; TEMP 36.1; O2SAT 97
[2025-01-27 13:23] VITALS: BP 132/82; PULSE 70; RESP 16; O2SAT 97
--- NOTE | 2025-01-27 13:25 | ANE.PACU2 ---
Inpatient post-anesthesia follow up: Airway intact: Yes Vital signs: Temperature 97 F Pulse Rate 70 Respiratory Rate 16 Blood Pressure 132/82 Pulse Oximetry 97 Oxygen Delivery Me thod Room Air Oxygen Flow Rate 4 Fraction of Inspir ed Oxygen Hydration adequate: Yes Nausea and vomiting: No Pain level: 1 Mental status: Baseline
== END 2025-01-27 13:26 | disposition home or self-care (01) ==
PROVIDERS: PCP Family Medicine; Visit Provider Student in an Organized Health Care Education/Training Program
PROC: 0DJ08ZZ Inspection of Upper Intestinal Tract, Via Natural or Artificial Opening Endoscopic (ICD-10-PCS; principal; 2025-01-27 13:15)
PROC: 0DJD8ZZ Inspection of Lower Intestinal Tract, Via Natural or Artificial Opening Endoscopic (ICD-10-PCS; CPT 45378; 2025-01-27 13:15)
DX: K92.1 Melena (principal); K51.40 Inflammatory polyps of colon without complications; K29.50 Unspecified chronic gastritis without bleeding; K21.9 Gastro-esophageal reflux disease without esophagitis; R01.1 Cardiac murmur, unspecified
CPT/HCPCS: 43239; 45380; 88305; 88342; J2704; J7030

== ENCOUNTER → 2025-02-27 08:36 | Outpatient (BNVA) | payer OTHER, SELFPAY | PROVIDERS: PCP Family Medicine; Visit Provider Family Medicine | DX: R00.2 Palpitations (principal) | CPT/HCPCS: 80053; 83735; 84443; 85025 ==

== ENCOUNTER 2025-03-26 05:54 | Outpatient (CLI) | payer OTHER, SELFPAY ==
--- NOTE | 2025-03-26 06:15 | USCV_ITS ---
Valerie Medina Age: 55 Gender: F : 1970 Exam Date: 03/26/2025 06:11 Ordering Phys: Tameka Hayden MD Technologist: HERI Exam Location: [facility] [place] Indication: eval MV, increasing palpitations BP: 110 / 78 HR: 66 Rhythm: Sinus Technical Quality: Adequate MEASUREMENTS (Male / Female) Normal Values 2D ECHO LV Diastolic Diameter PLAX 5.8 cm 4.2 - 5.9 / 3.9 - 5.3 cm IVS Diastolic Thickness 0.9 cm 0.6 - 1.0 / 0.6 - 0.9 cm IVS Systolic Thickness 1.0 cm LVPW Diastolic Thickness 1.1 cm 0.6 - 1.0 / 0.6 - 0.9 cm LVPW Systolic Thickness 1.1 cm LVOT Diameter 2.0 cm LV Ejection Fraction 2D Teich 22.1 % LV Ejection Fraction MOD 4C 53.3 % LV Ejection Fraction MOD 2C 60.5 % LV Ejection Fraction 2C AL 61.7 % LA Diameter 3.8 cm RA Systolic Volume 4C AL 44.4 ml RA Systolic Volume 4C MOD 41.6 ml LA Sys Volume AL 48.8 cm cubed LA Sys Volume Index AL 25.4 cm cubed/m squared Aorta at Sinotubular Diameter 2.8 cm IVC Diameter 1.9 cm M-MODE LA Ao Ratio MM 1.4 AV Cusp Separation MM 1.4 cm DOPPLER AV Peak Velocity 106.0 cm/s LVOT Peak Velocity 86.0 cm/s AV Area Cont Eq vti 2.5 cm squared AV Area Cont Eq pk 2.6 cm squared MV Peak Velocity 66.0 cm/s MV Area PHT 4.2 cm squared Mitral E to A Ratio 1.1 TV Peak Velocity 158.0 cm/s TR Peak Velocity 215.0 cm/s TR Peak Gradient 18.5 mmHg TV Peak E Velocity 79.0 cm/s PV Peak Velocity 72.0 cm/s FINDINGS Left Ventricle Normal left ventricular size, systolic function and wall thickness, with no regional wall motion abnormalities. Left ventricular ejection fraction is estimated at 60 %. Grade I/IV diastolic dysfunction (abnormal relaxation filling pattern), normal to mildly elevated filling pressures. Right Ventricle Normal right ventricular size and systolic function. Right Atrium Normal right atrial size. Left Atrium Normal left atrial size. IA Septum Normal appearance of the interatrial septum. Mitral Valve Moderately thickened mitral valve. No mitral valve stenosis. Mild mitral valve regurgitation. Aortic Valve Moderate aortic valve calcification. No aortic valve stenosis. Trace aortic valve regurgitation. Tricuspid Valve Normal tricuspid valve structure. No tricuspid valve stenosis or regurgitation. Normal pulmonary pressure. Pulmonic Valve Normal pulmonic valve structure. No pulmonic valve stenosis or regurgitation. Pericardium No pericardial effusion. Aorta Normal diameter of the aortic root and ascending thoracic aorta. IVC Normal IVC diameter. CONCLUSIONS Normal left ventricular size, systolic function and wall thickness, with no regional wall motion abnormalities. Left ventricular ejection fraction is estimated at 60 %. Grade I/IV diastolic dysfunction (abnormal relaxation filling pattern), normal to mildly elevated filling pressures. Moderately thickened mitral valve. No mitral valve stenosis. Mild mitral valve regurgitation. There is no pericardial effusion. Right atrial pressure is around 5 mm of mercury. Edison Nagel MD (Electronically Signed) Final Date: 31 March 2025 17:56 S
== END 2025-03-26 05:55 | disposition home or self-care (01) ==
PROVIDERS: PCP Family Medicine; Visit Provider Family Medicine
DX: I05.9 Rheumatic mitral valve disease, unspecified (principal); R93.1 Abnormal findings on diagnostic imaging of heart and coronary circulation; I35.8 Other nonrheumatic aortic valve disorders
CPT/HCPCS: 93306